=== PATIENT | female | born 1955 | race Caucasian/White ===

== ENCOUNTER 2018-02-07 00:34 | Emergency (ER) | payer MEDICAID ==
[~2018-02-07] VITALS: Ht 157.5 cm; Wt 65.8 kg
--- NOTE | 2018-02-07 00:38 | NUR ---
PT WHEELCHAIR ASSISTED TO ER BED 1
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
[2018-02-07 00:39] VITALS: BP 109/47
[2018-02-07] MEDS ORDERED: ACETAMINOPHEN EXTRA STRENGTH 500 MG TAB PO ONE (01:50)
--- NOTE | 2018-02-07 01:50 | NUR ---
Pt refused medication and refused xray. Po tylenol was wasted. ER MD informed. Continue to monitor.
[2018-02-07 04:06] VITALS: BP 111/57
--- NOTE | 2018-02-07 04:06 | NUR ---
Patient discharged with v/s stable. Written and verbal after care instructions given and explained. Patient alert, oriented and verbalized understanding of instructions. Wheel Chair Assisted with to home. All questions addressed prior to discharge. ID band removed. Patient advised to follow up with PMD. Rx of ACETAMINOPHEN 500MG given. Patient educated on indication of medication including possible reaction and side effects. Opportunity to ask questions provided and answered.
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
== END 2018-02-07 04:06 | disposition home or self-care (01) ==
LOC: MED 00:34
DX: S40.011A Contusion of right shoulder, initial encounter (principal); S10.93XA Contusion of unspecified part of neck, initial encounter; X58.XXXA Exposure to other specified factors, initial encounter; Y93.89 Activity, other specified; Y92.89 Other specified places as the place of occurrence of the external cause; Y99.8 Other external cause status; Z90.49 Acquired absence of other specified parts of digestive tract
CPT/HCPCS: 99283

== ENCOUNTER 2018-02-07 19:08 | Emergency (ER) | payer MEDICAID ==
[~2018-02-07] VITALS: Ht 170.2 cm; Wt 52.6 kg
[2018-02-07 19:08] VITALS: BP 115/79
--- NOTE | 2018-02-07 19:08 | NUR ---
PT BIBA TO BED 2.
[2018-02-07 19:15] VITALS: BP 115/79
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
[2018-02-07] MEDS ORDERED: KETOROLAC 60 MG/2 ML VIAL IM ONE (19:45)
--- NOTE | 2018-02-07 19:55 | NUR ---
XRAY AT BEDSIDE
--- NOTE | 2018-02-07 20:00 | NUR ---
PT REFUSES VITALS SIGNS TO BE TAKEN. ER MD YANCEY CHARGE NURSE NOTIFIED
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
--- NOTE | 2018-02-07 21:42 | NUR ---
CALLED GITA PEACOCK TO ASSIST WITH PATIENT DISCHARGE; PT REFUSING TO LEAVE AND VERBALLY THREATENING CHICHO BASHIR AND STAFF.
--- NOTE | 2018-02-07 22:00 | NUR ---
Patient discharged with v/s refused. Written and verbal after care instructions given and explained. Patient verbalized understanding. Wheel Chair Assisted out of ER. All questions addressed prior to discharge. Advised to follow up with PMD.
== END 2018-02-07 22:00 | disposition home or self-care (01) ==
LOC: MED 19:08
DX: G89.29 Other chronic pain (principal); M54.5 Low back pain; W05.0XXA Fall from non-moving wheelchair, initial encounter; Y93.89 Activity, other specified; Y92.89 Other specified places as the place of occurrence of the external cause; Y99.8 Other external cause status
CPT/HCPCS: 72040; 73030; 96372; 99284; J1885; Q0092

== ENCOUNTER 2018-02-08 05:00 | Emergency (ER) | payer MEDICAID ==
[~2018-02-08] VITALS: Ht 157.5 cm; Wt 74.8 kg
[2018-02-08 05:08] VITALS: BP 126/72
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
--- NOTE | 2018-02-08 05:15 | NUR ---
PROVIDED PT WITH FOOD AND BLANKET, NOTIFIED SECURITY TO BRING PT CLOTHES
[2018-02-08 05:40] VITALS: BP 132/71
--- NOTE | 2018-02-08 05:40 | NUR ---
Patient discharged with v/s stable. Written and verbal after care instructions given and explained. Patient verbalized understanding. Wheel Chair Assisted. All questions addressed prior to discharge. Advised to follow up with PMD. Instructed pt to stay in the lobby until social service comes in the AM. Pt verbalized understanding.
== END 2018-02-08 05:40 | disposition home or self-care (01) ==
LOC: MED 05:00
DX: G89.29 Other chronic pain (principal); M54.9 Dorsalgia, unspecified; R03.0 Elevated blood-pressure reading, without diagnosis of hypertension; Z59.0 Homelessness
CPT/HCPCS: 99283